=== PATIENT | female | born 1985 | race Caucasian/White ===

== ENCOUNTER 2024-03-21 13:00 | Outpatient (REF) | payer BC, SELFPAY ==
--- OUTSIDE RECORDS SUMMARY | 2024-04-07 12:10 | XMS_ITS | CCD ---
Author Organization [facility] Care Team Providers Care Geographical Historian Name Role Phone MAREN OLIVEROS Primary Care Unavailable DENNIS HUNTLEY Attending Unavailable DENNIS HUNTLEY Attending Unavailable DENNIS HUNTLEY Referring Unavailable MAREN OLIVEROS Primary Care Unavailable Maren Oliveros MD Primary Care Provider MAREN OLIVEROS Attending Unavailable MAREN OLIVEROS Referring Unavailable MAREN OLIVEROS Primary Care Unavailable EMY ARIAS Attending Unavailable EMY ARIAS Referring Unavailable CORNELIO GROVES Attending Unavailable EMY ARIAS Referring Unavailable CORNELIO GROVES Attending Unavailable Problems Active Problems Problem Classification Problem Date Documented Da te Episodic/Chronic Other non-traumatic joint disorders (1 source) Ankle pain Onset: 09-29-2023 Episodic Other nutritional; endocrine; and metabolic disorders (1 source) Other obesity due to excess calories; Translations: [Other obesity due to excess calories] Onset: 02-03-2024 Chronic Other nutritional; endocrine; and metabolic disorders (1 source) Body mass index (BMI) 32.0-32.9, adult; Translations: [Body mass index (BMI) 32.0-32.9, adult] Onset: 02-03-2024 Chronic Sprains and strains (1 source) Sprain of unspecified ligament of right ankle, initial encounter; Translations: [Sprain of unspecified ligament of right ankle, initial encounter] Onset: 09-29-2023 Episodic Unclassified (1 source) Rigth Ankle Injury Onset: 09-29-2023 Unclassified (1 source) discuss weight loss medication Onset: 02-03-2024 Past or Other Problems Problem Classification Problem Date Documented Da te Episodic/Chronic Mood disorders (1 source) Mood disorders Onset: 02-20-2021 02-20-2021 Results Test Name Value Interpretation Reference Range Facil ity US PELVIS TRANSVAGINALon US PELVIS TRANSVAGINAL FINDINGS: Uterus 10.3 x 5.9 x 6.6cm Endometrium 4mm Right Ovary 2.6 x 2.3 x 2.5 cm Left Ovary 2.5 x 1.5 x 2.1 cm The uterus is normal in size and orientation. No worrisome mass lesions are seen. Endometrium appears unremarkable. No fluid is seen within the cul-de-sac. Both ovaries appear normal for this age. IMPRESSION: Normal pelvic ultrasound appearance. TRANSCRIBED BY: ELECTRONICALLY SIGNED BY: Isac Wise MD Normal Not Available XR ANKLE RT MIN 3 VWSon 09-17 XR ANKLE RT MIN 3 VWS XR ANKLE RT MIN 3 VWS XR ANKLE RT MIN 3 VWS INDICATION: Ankle pain COMPARISON: None FINDINGS: No acute fracture or dislocation. Soft tissue prominence surrounds the ankle. No radiopaque foreign bodies. IMPRESSION: Soft tissue prominence surrounds the ankle without underlying osseous abnormality. 32 Finalized by Miles Murillo on 09/29/2023 4:32 PM Normal [facility] Encounters Encounter Date Encounter Type Care Provider Facility Start: 03-21-2024 End: 03-21-2024 ambulatory CORNELIO GERMAIN Not Available Start: 02-03-2024 End: 02-03-2024 ambulatory [facility] Start: 01-25-2024 End: 01-25-2024 ambulatory CORNELIO GERMAIN Not Available Start: 12-14-2023 End: 12-14-2023 ambulatory EMY L FLORO Not Available Start: 12-08-2023 End: 12-08-2023 ambulatory EMY L FLORO Not Available Start: 09-29-2023 End: 09-30-2023 Emergency department patient visit DENNIS HUNTLEY [facility] Start: 03-18-2023 Telephone encounter Maggy JOLLEY [facility] Physicians General Surgery Procedures Date Procedure Procedure Detail Performing Clinician Start: 02-20-2021 Adult depression scr eening assessment Maggy JOLLEY Plan of Treatment Date Care Activity Detail Author Start: 07-14-2031 DTaP,Tdap and Td Vaccines (6 - Td or Tdap) DTaP,Tdap and Td Vaccines (6 - Td or Tdap) [facility] Start: 09-29-2024 Adult BMI Screening Adult BMI Screen ing [facility] Start: 09-29-2024 Tobacco Screening Tobacco Screening [facility] Start: 04-17-2024 Influenza vaccination Influenza Vacc ine [facility] Start: 04-17-2023 COVID-19 Vaccine ( season) COVID-19 Vaccine ( season) [facility] Start: 02-20-2022 Depression Screening Depression Scre ening [facility] Start: 2006 Screening for malign ant neoplasm of cervix Pap Smear [facility] Start: 2003 Adult BMI Follow Up Plan Adult BMI Follow Up Plan [facility] Immunizations Immunization Date Immunization Notes Care Provider Fa cility 07-14-2021 tetanus toxoid, reduced diphtheria toxoid, and acellular pertussis vaccine, adsorbed Maggy Waite [facility] 10-09-2014 tetanus toxoid, reduced diphtheria toxoid, and acellular pertussis vaccine, adsorbed Maggy Waite [facility] 07-16-2014 influenza, injectabl e, quadrivalent, contains preservative Maggy Waite [facility] 07-16-2014 influenza virus vaccine, unspecified formulation Maggy Waite [facility] 06-08-2009 influenza virus vaccine, whole virus Maggy Waite [facility] 09-04-1999 hepatitis B vaccine, pediatric or pediatric/adolescent dosage Maggy Waite [facility] 01-05-1998 hepatitis B vaccine, pediatric or pediatric/adolescent dosage Maggy Waite [facility] 01-05-1998 TD(adult) unspecifie d formulation Maggy Waite [facility] 09-14-1997 hepatitis B vaccine, pediatric or pediatric/adolescent dosage Maggy Waite [facility] 09-14-1997 measles, mumps and rubella virus vaccine Maggy Waite [facility] 04-13-1990 TD(adult) unspecifie d formulation Maggy Waite [facility] 04-13-1990 trivalent poliovirus vaccine, live, oral Maggy Waite [facility] 03-30-1990 measles, mumps and rubella virus vaccine Maggydanita Waite [facility] 04-24-1986 diphtheria, tetanus toxoids and pertussis vaccine Maggydanita Waite [facility] 01-13-1986 diphtheria, tetanus toxoids and pertussis vaccine Joanna Mariann [facility] 01-13-1986 trivalent poliovirus vaccine, live, oral Maggydanita Waite A [facility] 1985 trivalent poliovirus vaccine, live, oral Maggy Mariann [facility] Payers Date Payer Category Payer Unknown [employer] OUT OF STATE PPO/TRUST [id number] 2021-[facility] [phone] [address] [place] [address] [id number] 2021 Unknown [id number] 1985 Unknown [id number] 1985 Unknown [id number] 1985 Unknown [id number] 1985 Unknown [id number] 1985 Unknown [id number] 1985 Unknown [id number] 1985 Unknown [id number] Social History Date Type Detail Facility Start: 02-12-2023 Tobacco smoking stat [facility] Never smoked tobacco [facility] Start: 02-12-2023 Tobacco use and exposure Smokeless tobacco non-user [facility] Start: 03-04-2023 Alcohol intake Current drinke r of alcohol (finding) [facility] Start: 07-24-2023 End: 09-29-2023 History of Social function [facility] Start: 07-24-2023 End: 09-29-2023 Tobacco use panel [facility] Adolescent depressio n screening assessment 0 [facility] Start: 05-18-2017 Alcohol Comment SOCIAL [facility] Start: 1985 Sex Assigned At Not on file P [facility] Medical Equipment Procedure Code Equipment Code Equipment Origin al Text Equipment Identifier Dates Mesh 3.3x2.3mm P lstr Clgn Symbotex 9cm Comp Mfl Babsr [facility] - Sna - [id number] Start: 07-14-2023 Note 03-18-2023 Telephone Encounter - SAMREEN Espinoza - 03/18/2023 11:20 AM EDT Note Date & Type Note Facility 03-18-2023 Miscellaneous Notes Formattin g of this note might be different from the original. I called Deana back to reschedule her Davinci umbilical hernia repair with Dr. Wells. She stated she is going on vacation. She requested something in June 2023. I told the patient that she would need an appt. for a current H & P. The patient verbalized an understanding. The surgery was scheduled for 06/23/23. All appts. were scheduled as well. documented in this encounter [facility] Telephone encounter Note 03-18-2023 Telephone Encounter - SAMREEN Espinoza - 03/18/2023 11:20 AM EDT Note Date & Type Note Facility 03-18-2023 Telephone encount er Note I called Deana back to reschedule her Davinci umbilical hernia repair with Dr. Wells. She stated she is going on vacation. She requested something in June 2023. I told the patient that she would need an appt. for a current H & P. The patient verbalized an understanding. The surgery was scheduled for 06/23/23. All appts. were scheduled as well. [facility] Instructions Note Date & Type Note Facility Instructions Not on filedocumented in this en counter [facility] Summary Purpose Family History No Family History Records FoundNo Family History Records FoundNo Family History Records Found Advance Directives No Advanced Directives Records FoundNo Advanced Directives Records FoundNo Advanced Directives Records Found Additional Source Comments INFORMATION SOURCE (unrecogn ized section and content) DATE CREATED AUTHOR 10/01/2023 [facility] DATE CREATED AUTHOR AUTHOR'S ORGANIZ ATION 02/05/2024 [facility] DATE CREATED AUTHOR AUTHOR'S ORGANIZ ATION 03/22/2024 [facility] Care Teams (unrecognized sec tion and content) Geographical Historian Relationship Specialty Start Date End Date Maren Oliveros MD [address] [place] [address], [address] [place] [address] PCP - General Pediatrics 05/11/17 FOR RECORDS PERTAINING TO PATIENTS WHO ARE OR HAVE BEEN ENROLLED IN A CHEMICAL DEPENDENCY/SUBSTANCEABUSE PROGRAM, SOME INFORMATION MAY BE OMITTED. This clinical summary was aggregated from multiple sources. Caution should be exercised in using it in the provision of clinical care. This summary normalizes information from multiple sources, and as a consequence, information in this document may materially change the coding, format and clinical context of patient data. In addition, data may be omitted in some cases. CLINICAL DECISIONS SHOULD BE BASED ON THE PRIMARY CLINICAL RECORDS. [employer] provides no warranty or guarantee of the accuracy or completeness of information in this document.
--- OUTSIDE RECORDS SUMMARY | 2024-04-07 12:12 | XMS_ITS | CCD ---
Author Organization [facility] Care Team Providers Care Cement Finisher Helper Name Role Phone MAREN OLIVEROS Primary Care [...] Miles Murillo on 09/29/2023 4:32 PM Normal [facility] Encounters Encounter Date Encounter Type Care Provider Facility Start: 03-21-2024 End: 03-21-2024 ambulatory CORNELIO GERMAIN Not Available Start: 02-03-2024 End: 02-03-2024 ambulatory [facility] Start: 01-25-2024 End: 01-25-2024 ambulatory CORNELIO GERMAIN Not Available Start: 12-14-2023 End: 12-14-2023 ambulatory EMY L FLORO Not Available Start: 12-08-2023 End: 12-08-2023 ambulatory EMY L FLORO Not Available Start: 09-29-2023 End: 09-30-2023 Emergency department patient visit DENNIS HUNTLEY [facility] Start: 03-18-2023 Telephone encounter Maggy JOLLEY [facility] Physicians General Surgery Procedures Date Procedure Procedure Detail Performing Clinician Start: 02-20-2021 Adult depression scr eening assessment Maggy JOLLEY Plan of Treatment Date Care Activity Detail Author Start: 07-14-2031 DTaP,Tdap and Td Vaccines (6 - Td or Tdap) DTaP,Tdap and Td Vaccines (6 - Td or Tdap) [facility] Start: 09-29-2024 Adult BMI Screening Adult BMI Screen ing [facility] Start: 09-29-2024 Tobacco Screening Tobacco Screening [facility] Start: 04-17-2024 Influenza vaccination Influenza Vacc ine [facility] Start: 04-17-2023 COVID-19 Vaccine ( season) COVID-19 Vaccine ( season) [facility] Start: 02-20-2022 Depression Screening Depression Scre ening [facility] Start: 2006 Screening for malign ant neoplasm of cervix Pap Smear [facility] Start: 2003 Adult BMI Follow Up Plan Adult BMI Follow Up Plan [facility] Immunizations Immunization Date Immunization Notes Care Provider Fa cility 07-14-2021 tetanus toxoid, reduced diphtheria toxoid, and acellular pertussis vaccine, adsorbed Maggy Waite [facility] 10-09-2014 tetanus toxoid, reduced diphtheria toxoid, and acellular pertussis vaccine, adsorbed Maggy Waite [facility] 07-16-2014 influenza, injectabl e, quadrivalent, contains preservative Maggy Waite [facility] 07-16-2014 influenza virus vaccine, unspecified formulation Maggy Waite [facility] 06-08-2009 influenza virus vaccine, whole virus Maggy Waite [facility] 09-04-1999 hepatitis B vaccine, pediatric or pediatric/adolescent dosage Maggy Waite [facility] 01-05-1998 hepatitis B vaccine, pediatric or pediatric/adolescent dosage Maggy Waite [facility] 01-05-1998 TD(adult) unspecifie d formulation Maggy Waite [facility] 09-14-1997 hepatitis B vaccine, pediatric or pediatric/adolescent dosage Maggy Waite [facility] 09-14-1997 measles, mumps and rubella virus vaccine Maggy Waite [facility] 04-13-1990 TD(adult) unspecifie d formulation Maggy Waite [facility] 04-13-1990 trivalent poliovirus vaccine, live, oral Maggy Waite [facility] 03-30-1990 measles, mumps and rubella virus vaccine Maggydanita Waite [facility] 04-24-1986 diphtheria, tetanus toxoids and pertussis vaccine Maggydanita Waite [facility] 01-13-1986 diphtheria, tetanus toxoids and pertussis vaccine [place] Mariann [facility] 01-13-1986 trivalent poliovirus vaccine, live, oral Maggydanita Waite A [facility] 1985 trivalent poliovirus vaccine, live, oral Maggy Mariann [facility] Payers Date Payer Category Payer Unknown [employer] OUT OF STATE PPO/TRUST [id number] 2021-[employer] [phone] [address] [place] [address] [id number] 2021 Unknown [id number] 1985 Unknown [id number] 1985 Unknown [id number] 1985 Unknown [id number] 1985 Unknown [id number] 1985 Unknown [id number] 1985 Unknown [id number] 1985 Unknown [id number] Social History Date Type Detail Facility Start: 02-12-2023 Tobacco smoking stat [facility] Never smoked tobacco [facility] Start: 02-12-2023 Tobacco use and exposure Smokeless tobacco non-user [facility] Start: 03-04-2023 Alcohol intake Current drinke r of alcohol (finding) [facility] Start: 07-24-2023 End: 09-29-2023 History of Social function [facility] Start: 07-24-2023 End: 09-29-2023 Tobacco use panel [facility] Adolescent depressio n screening assessment [address] [facility] Start: 05-18-2017 Alcohol Comment SOCIAL [facility] Start: 1985 Sex Assigned At Not on file P [facility] Medical Equipment Procedure Code Equipment Code Equipment Origin al Text Equipment Identifier Dates Mesh 3.3x2.3mm P lstr Clgn Symbotex 9cm Comp Mfl Babsr [facility] - Sna - [id number] Start: 07-14-2023 Note 03-18-2023 Telephone Encounter [...] scheduled as well. documented in this encounter [facility] Telephone encounter Note 03-18-2023 Telephone Encounter [...] 06/23/23. All appts. were scheduled as well. [facility] Instructions Note Date & Type Note Facility Instructions Not on filedocumented in this en counter [employer] Summary Purpose Family History No Family History Records FoundNo Family History Records FoundNo Family History Records Found Advance Directives No Advanced Directives Records FoundNo Advanced Directives Records FoundNo Advanced Directives Records Found Additional Source Comments INFORMATION SOURCE (unrecogn ized section and content) DATE CREATED AUTHOR 10/01/2023 [facility] DATE CREATED AUTHOR AUTHOR'S ORGANIZ ATION 02/05/2024 [facility] DATE CREATED AUTHOR AUTHOR'S ORGANIZ ATION 03/22/2024 [facility] Specialists [facility] Care Teams (unrecognized sec tion and content) Cement Finisher Helper Relationship Specialty Start Date End Date Maren Oliveros MD [address] [place] [address], [address] [place] [address] PCP - General Pediatrics 05/11/17 FOR RECORDS [...] BE BASED ON THE PRIMARY CLINICAL RECORDS. [employer] provides no warranty or guarantee of the accuracy or completeness of information in this document.
== END 2024-03-21 13:01 | disposition home or self-care (01) ==
LOC: LAB 13:00
PROVIDERS: Family Provider Internal Medicine; Visit Provider Obstetrics & Gynecology
DX: N92.0 Excessive and frequent menstruation with regular cycle (principal)
CPT/HCPCS: 88305

== ENCOUNTER 2024-03-28 14:32 | Outpatient (OUT) | payer BC, SELFPAY | END 2024-03-28 14:33 | disposition home or self-care (01) | PROVIDERS: Family Provider Internal Medicine; Visit Provider Obstetrics & Gynecology | DX: Z01.818 Encounter for other preprocedural examination (principal); N92.0 Excessive and frequent menstruation with regular cycle; N93.9 Abnormal uterine and vaginal bleeding, unspecified; R10.2 Pelvic and perineal pain ==

== ENCOUNTER 2024-04-08 06:07 | Day surgery (SDC) | payer BC, SELFPAY ==
[2024-03-28 14:52] VITALS: BP 143/96; PULSE 68; TEMP 36.4; O2SAT 100; BMI 34.1
--- OUTSIDE RECORDS SUMMARY | 2024-04-08 06:10 | XMS_ITS | CCD ---
Author Organization [facility] Care Team Providers Care Credit Reference Clerk Name Role Phone MAREN OLIVEROS Primary Care [...] Miles Murillo on 09/29/2023 4:32 PM Normal [facility] Encounters Encounter Date Encounter Type Care Provider Facility Start: 03-21-2024 End: 03-21-2024 ambulatory CORNEILO GERMAIN Not Available Start: 02-03-2024 End: 02-03-2024 ambulatory [facility] Start: 01-25-2024 End: 01-25-2024 ambulatory CORNELIO GERMAIN Not Available Start: 12-14-2023 End: 12-14-2023 ambulatory EMY L FLORO Not Available Start: 12-08-2023 End: 12-08-2023 ambulatory EMY L FLORO Not Available Start: 09-29-2023 End: 09-30-2023 Emergency department patient visit DENNIS HUNTLEY [facility] Start: 03-18-2023 Telephone encounter Maggy JOLLEY [facility] General Surgery Procedures Date Procedure Procedure Detail Performing Clinician Start: 02-20-2021 Adult depression scr eening assessment Maggy JOLLEY Plan of Treatment Date Care Activity Detail Author Start: 07-14-2031 DTaP,Tdap and Td Vaccines (6 - Td or Tdap) DTaP,Tdap and Td Vaccines (6 - Td or Tdap) [facility] Start: 09-29-2024 Adult BMI Screening Adult BMI Screen ing [facility] Start: 09-29-2024 Tobacco Screening Tobacco Screening [facility] Start: 04-17-2024 Influenza vaccination Influenza Vacc ine [facility] Start: 04-17-2023 COVID-19 Vaccine ( season) COVID-19 Vaccine ( season) [facility] Start: 02-20-2022 Depression Screening Depression Scre ening [facility] Start: 2006 Screening for malign ant neoplasm of cervix Pap Smear [facility] Start: 2003 Adult BMI Follow Up Plan Adult BMI Follow Up Plan [facility] Immunizations Immunization Date Immunization Notes Care Provider Fa cility 07-14-2021 tetanus toxoid, reduced diphtheria toxoid, and acellular pertussis vaccine, adsorbed Maggy Waite [facility] 10-09-2014 tetanus toxoid, reduced diphtheria toxoid, and acellular pertussis vaccine, adsorbed Maggy Waite [facility] 07-16-2014 influenza, injectabl e, quadrivalent, contains preservative Maggy Waite [facility] 07-16-2014 influenza virus vaccine, unspecified formulation Maggy Waite [facility] 06-08-2009 influenza virus vaccine, whole virus Maggy Waite [facility] 09-04-1999 hepatitis B vaccine, pediatric or pediatric/adolescent dosage Maggy Waite [facility] 01-05-1998 hepatitis B vaccine, pediatric or pediatric/adolescent dosage Maggy Waite [facility] 01-05-1998 TD(adult) unspecifie d formulation Maggy Waite [facility] 09-14-1997 hepatitis B vaccine, pediatric or pediatric/adolescent dosage Maggy Waite [facility] 09-14-1997 measles, mumps and rubella virus vaccine Maggy Waite [facility] 04-13-1990 TD(adult) unspecifie d formulation Maggy Waite [facility] 04-13-1990 trivalent poliovirus vaccine, live, oral Maggy Waite [facility] 03-30-1990 measles, mumps and rubella virus vaccine Maggydanita Waite [facility] 04-24-1986 diphtheria, tetanus toxoids and pertussis vaccine Maggydanita Waite [facility] 01-13-1986 diphtheria, tetanus toxoids and pertussis vaccine Roscoe Mariann [facility] 01-13-1986 trivalent poliovirus vaccine, live, oral Maggydanita Waite A [facility] 1985 trivalent poliovirus vaccine, live, oral Maggy Mariann [facility] Payers Date Payer Category Payer Unknown [employer] OUT OF STATE PPO/TRUST [id number] 2021-[facility] [phone] [address] [place] [address] [id number] 2021 Unknown [id number] 1985 Unknown [id number] 1985 Unknown [id number] 1985 Unknown [id number] 1985 Unknown [id number] 1985 Unknown [id number] 1985 Unknown [id number] 1985 Unknown [id number] Social History Date Type Detail Facility Start: 02-12-2023 Tobacco smoking stat [facility] Never smoked tobacco [facility] Start: 02-12-2023 Tobacco use and exposure Smokeless tobacco non-user [facility] Start: 03-04-2023 Alcohol intake Current drinke r of alcohol (finding) [facility] Start: 07-24-2023 End: 09-29-2023 History of Social function [facility] Start: 07-24-2023 End: 09-29-2023 Tobacco use panel [facility] Adolescent depressio n screening assessment 0 [facility] Start: 05-18-2017 Alcohol Comment SOCIAL [facility] Start: 1985 Sex Assigned At Not on file P [facility] Medical Equipment Procedure Code Equipment Code Equipment Origin al Text Equipment Identifier Dates Mesh 3.3x2.3mm P lstr Clgn Symbotex 9cm Comp Mfl Babsr [facility] - [id number] Start: 07-14-2023 Note 03-18-2023 Telephone Encounter [...] scheduled as well. documented in this encounter [facility] Telephone encounter Note 03-18-2023 Telephone Encounter - [...] 06/23/23. All appts. were scheduled as well. [employer] Instructions Note Date & Type Note Facility Instructions Not on filedocumented in this en counter [employer] Summary Purpose Family History No Family History Records FoundNo Family History Records FoundNo Family History Records Found Advance Directives No Advanced Directives Records FoundNo Advanced Directives Records FoundNo Advanced Directives Records Found Additional Source Comments INFORMATION SOURCE (unrecogn ized section and content) DATE CREATED AUTHOR 10/01/2023 [facility] DATE CREATED AUTHOR AUTHOR'S ORGANIZ ATION 02/05/2024 [facility] DATE CREATED AUTHOR AUTHOR'S ORGANIZ ATION 03/22/2024 [facility] Care Teams (unrecognized sec tion and content) Credit Reference Clerk Relationship Specialty Start Date End Date Maren Oliveros MD [address] [place] [address], [address] [place] [address] PCP - General Pediatrics 05/11/17 FOR RECORDS [...] BE BASED ON THE PRIMARY CLINICAL RECORDS. [employer] provides no warranty or guarantee of the accuracy or completeness of information in this document.
[2024-04-08 06:17] VITALS: BP 167/100; PULSE 86; TEMP 36.4; O2SAT 98; BMI 35.0
[2024-04-08 06:48] LABS: HCG Quantitative <1 mIU/mL
[2024-04-08] MEDS: LACTATED RINGER'S SOLUTION 1,000 ML 50 ML IV (06:56)
[2024-04-08 07:00] LABS: Basophils Absolute Auto 0.1 10^3/uL (0.0-0.1); Basophils Percent Auto 1.1 % (0.2-2.0); Eosinophils Absolute Auto 0.6 10^3/uL (0.0-0.7); Eosinophils Percent Auto 7.5 % (0.9-7.0); Hematocrit 34.5 % (36.0-48.0); Hemoglobin 10.2 g/dL (12.0-16.0); Immature Granulocytes Abs Auto 0.02 10^3/uL (0.00-0.03); Immature Granulocytes Pct Auto 0.2 % (0.0-0.5); Lymphocytes Absolute Auto 2.2 10^3/uL (1.2-3.8); Lymphocytes Percent Auto 26.5 % (20.5-60.0); Mean Corpuscular HGB Conc 29.6 g/dL (29.9-35.2); Mean Corpuscular Hemoglobin 23.2 pg (26.7-34.0); Mean Corpuscular Volume 78.6 fL (81.0-99.0); Mean Platelet Volume 10.8 fL (9.5-13.5); Monocytes Absolute Auto 0.8 10^3/uL (0.3-0.8); Monocytes Percent Auto 9.7 % (1.7-12.0); Neutrophils Absolute Auto 4.5 10^3/uL (1.4-6.5); Platelet Count 332 10^3/uL (150-450); Red Blood Count 4.39 10^6/uL (4.20-5.40); Red Cell Distribution Width 15.7 % (11.0-15.0); White Blood Count 8.2 10^3/uL (4.0-11.0)
[2024-04-08 08:08] VITALS: BP 115/61; PULSE 86; TEMP 36.8; O2SAT 95
[2024-04-08 08:23] VITALS: BP 107/77; PULSE 89; O2SAT 100
--- NOTE | 2024-04-08 08:28 | PM.ONB ---
Brief Operative Note Date of procedure: 04/08/24 Pre-op diagnosis general: menorrhagia Post-op diagnosis: same as pre-op Procedure: NAME OF PROCEDURE: [ ] Tami endometrial ablation with hysteroscopy. PROCEDURE: The patient was taken back to the OR where she was prepped and draped in the normal sterile fashion after being placed in the dorsal lithotomy position, after being placed under general anesthesia without difficulty.? A weighted speculum was placed into the vagina. The anterior lip was grasped with a single tooth tenaculum. The patient was then sounded to approximated 8cm. The patient?s cervix was gently dilated using hegardilators. The hysteroscope was passed through the cervix into the uterus where both ostia were seen. No gross evidence of polyps, fibroids or malignancy. The cervical length was noted to be 4 cm. The total cavity length is 4cm.? The Tami ablation apparatus was set to approximately 4cm in length. This was placed through the cervix and into the uterus. After the seal was tested, at that time the total ablation of 120 seconds was performed with the Tami withoutdifficulty. All instruments were removed from the vagina. Excellent hemostasis noted.? Sponge and lap count correct times 2.? Patient taken to recovery in stable condition. Anesthesia: MAC Surgeon: Luis Olvera Estimated blood loss (mL): 5 Pathology: none sent Condition: stable Disposition: PACU Urinary Catheter Management Urinary Catheter Management Straight: Cath placed during this visit: no
[2024-04-08 08:39] VITALS: BP 132/92; PULSE 77; O2SAT 99
[2024-04-08 09:08] VITALS: BP 138/94; PULSE 74; O2SAT 99
[2024-04-08] MEDS: LACTATED RINGER'S SOLUTION 1,000 ML 150 ML IV (09:17)
--- NOTE | 2024-04-08 09:18 | PC.NURSE ---
0910: pt voices need to void,physician underwriter and Anna,RN assist pt to bedside commode, pt very drowsy,unable to keep eyes open. pt assisted back into bed,pt unable to void at this time.
[2024-04-08 09:38] VITALS: BP 132/96; PULSE 74; O2SAT 99
--- NOTE | 2024-04-08 10:02 | PC.NURSE ---
0945: pt ambulates to bathroom with minimal assistance,pt voids without difficulty.
== END 2024-04-08 09:52 | disposition home or self-care (01) ==
PROVIDERS: Family Provider Internal Medicine; PCP Internal Medicine; Visit Provider Obstetrics & Gynecology
PROC: (CPT 952; principal; 2024-04-08 07:30)
DX: N92.0 Excessive and frequent menstruation with regular cycle (principal); N93.9 Abnormal uterine and vaginal bleeding, unspecified; R10.2 Pelvic and perineal pain
CPT/HCPCS: 58563; 36415; 84702; 85025; J1100; J1885; J2250; J2704; J3010

== ENCOUNTER 2025-07-14 10:02 | Outpatient (OUT) | payer BC, SELFPAY ==
--- OUTSIDE RECORDS SUMMARY | 2025-07-04 08:40 | XMS_ITS | Encounter Summary ---
Author Organization [facility] Address [address] [place] [address] Care Team Providers Care Melon Packer Name Role Phone Miguel Oliveros MD Primary Care Provider [phone] Reason for Visit * ReasonCommentsPre-op Visit Encounter Details DateTypeDepartmentCare Team (Latest Contact Info)Jyilwzyppqz66/18/2025 8:40 AM ESTConsult [facility] [place] [facility] [address] [id number] Luis Olvera DO [address] [place] [address] Menorrhagia with regular cycle; Pelvic pain; Dysmenorrhea; Dyspareunia in female; Pre-op examination Social History Tobacco UseTypesPacks/DayYears UsedDateSmoking Tobacco: NeverSmokeless Tobacco: Never Tobacco Cessation:Counseling Given: Not Answered Alcohol UseStandard Drinks/WeekCommentsYes1 (1 standard drink = 0.6 oz pure alcohol)CommentsNoSex and Gender InformationValueDate RecordedSex Assigned at BirthNot on fileLegal ZwbFksrxv10/15/2023 7:23 PM EDTGender Identity Not on fileSexual OrientationNot on filedocumented as of this encounter Last Filed Vital Signs Vital SignReadingTime TakenCommentsBlood Ufdscdty154/7807/04/2025 9:07 AM EST Pulse--Temperature--Respiratory Rate--Oxygen Saturation--Inhaled Oxygen Concentration--Awxjpx54.8 kg (165 lb)07/04/2025 9:07 AM NGYHvntah050.6 cm (5' 6 )07/04/2025 9:07 AM ESTBody Mass Index26.6311 9:07 AM ESTdocumented in this encounter Progress Notes * Blossom ChristianRIMMA - 07/04/2025 8:40 AM EST Reason for Appointment: Patient ID: Humble Martinez is a 39 y.o. female who presents for Pre-op Visit Patient presents today for Pre Op appointment. Patient is scheduled to undergo Total Abdominal Hysterectomy, possible BSO, possible cystoscopy on 08/02/[address] Olvera at [facility]. MEDICATIONS Current Outpatient Medications Medication Instructions acetaminophen (TYLENOL) 1,000 mg, Oral, Every 6 hours PRN ferrous sulfate 325 mg, Oral, Daily with breakfast ibuprofen 800 mg, Oral, 3 times daily ALLERGIES No Known Allergies PROBLEMS Active Ambulatory Problems Diagnosis Date Noted No Active Ambulatory Problems Resolved Ambulatory Problems Diagnosis Date Noted No Resolved Ambulatory Problems No Additional Past Medical History HISTORY PAST MEDICAL HISTORY SOCIAL HISTORY No past medical history on file. Social History Tobacco Use Smoking status: Never Smokeless tobacco: Never Substance Use Topics Alcohol use: Yes Alcohol/week: 1.0 standard drink of alcohol Types: 1 Glasses of wine per week Drug use: Never FAMILY HISTORY No family history on file. SURGICAL HISTORY Past Surgical History: Procedure Laterality Date SECTION, LOW TRANSVERSE x2 2010 2014 ENDOMETRIAL ABLATION HERNIA REPAIR REVIEW OF SYSTEMS Review of Systems: Review of Systems Constitutional: Negative. HENT: Negative. Eyes: Negative. Respiratory: Negative. Cardiovascular: Negative. Gastrointestinal: Negative. Genitourinary: Positive for dyspareunia, menstrual problem, pelvic pain and vaginal bleeding. Musculoskeletal: Negative. Skin: Negative. Neurological: Negative. All other systems reviewed and are negative. Hematological: Negative. Endocrine: Negative. Allergic/Immunologic: Negative. OBJECTIVE Objective: Physical Exam Constitutional: Appearance: Normal appearance. She is well-developed. Cardiovascular: Rate and Rhythm: Normal rate and regular rhythm. Pulmonary: Effort: Pulmonary effort is normal. Breath sounds: Normal breath sounds. Abdominal: General: Bowel sounds are normal. There is no distension. Palpations: Abdomen is soft. Tenderness: There is no abdominal tenderness. There is no guarding or rebound. Musculoskeletal: General: No swelling. Normal range of motion. Right lower leg: No edema. Left lower leg: No edema. Neurological: Mental Status: She is alert and oriented to person, place, and time. Skin: General: Skin is warm and dry. Psychiatric: Mood and Affect: Mood normal. Behavior: Behavior normal. Vitals and nursing note reviewed. Exam conducted with a power hair clipper present. Vitals: Estimated body mass index is 26.63 kg/m?? as calculated from the following: Height as of 01/25/24: 5' 6 . Weight as of this encounter: 165 lb. BP: 128/78 Patient's last menstrual period was 05/20/2025 (exact date). Assessment/Plan ICD-10-CM 1. Menorrhagia with regular cycle N92.0 2. Pelvic pain R10.20 3. Dysmenorrhea N94.6 4. Dyspareunia in female N94.10 5. Pre-op examination Z01.818 Assessment/Plan Pre Op: Patient is doing well but has complaints of Menorrhagia, Pelvic pain, Dysmenorrhea and Dyspareunia.I have discussed conservative management vs. surgical management with the patient in detail and patient desires surgical management at this time. Patient will undergo Total Abdominal Hysterectomy, pos sible BSO, possible cystoscopy on 08/02/2025. Surgical consents were signed, mmc was reviewed, and patient is to proceed to [facility] OR. Patient is scheduled for 07/19/25 @ 9:00 am. Follow Up: Patient is to follow up at 1 & 6 weeks post operative to assess proper healing and recovery from procedure. Documented by Svetlana Painting LPN on behalf of: Luis Olvera DO documented in this encounter Plan of Treatment DateTypeDepartmentCare Team (Latest Contact Info)Byoxxnlofgf38/23/2025 9:30 AM ESTOffice Visit [facility] [address] [address] Darlyn Atkins PA [address] [place] [address] documented as of this encounter Visit Diagnoses Diagnosis Menorrhagia with regular cycle Pelvic pain Dysmenorrhea Dyspareunia in female Pre-op examination documented in this encounter Care Teams Team MemberRelationshipSpecialtyStart DateEnd Date Miguel Oliveros MD [address] [place] [address], [address] [place] [address] PCP - GeneralFamily Medicine03/21/24documented as of this encounter
--- OUTSIDE RECORDS SUMMARY | 2025-07-14 10:04 | XMS_ITS | CCD ---
Author Organization [facility] Care Team Providers Care Char House Supervisor Name Role Phone MAREN OLIVEROS Attending Unavailable MAREN OLIVEROS Referring Unavailable MAREN OLIVEROS Primary Care Unavailable Maren Oliveros MD Primary Care Provider [phone] MAREN OLIVEROS Primary Care Unavailable Maren Oliveros MD Primary Care Provider EMY MCMAHON Attending Unavailable CORNELIO OLVERA Attending Unavailable Medications Current Medications MedicationDrug Class(es)DatesSig (Normalized)Sig (Original)acetaminophen 500 mg oral tablet (5 sources)Start: 04-63-3068jueh 2 tablets by mouth every six hours as needed acetaminophen (Tylenol) 500 MG tablet Take 1,000 mg by mouth every 6 (six) hours if needed 09/29/2023 Activeferrous sulfate 325 mg oral tablet (5 sources)take 1 tablet by mouth at mealtimeferrous sulfate 325 (65 Fe) MG tablet Take 325 mg by mouth in the morning. Take with meals. Activeibuprofen 800 mg oral tablet (5 sources)Nonsteroidal Anti-inflammatory DrugStart: 03-75-3331pixqqoixj 800 MG tablet Take 800 mg by mouth in the morning and 800 mg at noon and 800 mg in the evening. 09/29/2023 ActiveSemaglutide-Weight Management 0.5 MG/0.5ML solution auto-injector (5 sources)Start: 42-75-6511ypakgi 0.25 mg by subcutaneous injection every week Semaglutide-Weight Management 0.5 MG/0.5ML solution auto-injector Inject 0.25 mg under the skin once a week 02/03/2024 Active Problems Problem ClassificationProblemDateDocumented DateEpisodic/Chronic Administrative/social admission (2 sources)Patient encounter status; Translations: [Other specified counseling] 84-98-2322YlhgaiwuOqtwhjxfn disorders (2 sources)Menometrorrhagia; Translations: [Excessive and frequent menstruation with irregular cycle]11-75-4993TwkmxeqMehrx lower respiratory disease (2 sources)CoughOnset: 25-54-7217PvhbntrfYnmpa nutritional; endocrine; and metabolic disorders (1 source)Other obesity due to excess calories; Translations: [Other obesity due to excess calories]Onset: 72-22-4470BehcznhWtufj nutritional; endocrine; and metabolic disorders (1 source)Body mass index (BMI) 32.0-32.9, adult; Translations: [Body mass index (BMI) 32.0-32.9, adult]Onset: 68-62-8190WkrybdtNdlejvvnsmmc (1 source)discuss weight loss medicationOnset: 50-80-1860Kgwnd infection (1 source)Other specified viral diseases; Translations: [Other specified viral diseases]Onset: 57-61-6429Spisgdyh Results Test NameValueInterpretationReference RangeFacilitySARS/FLU A+B/RSV by NAAT/Molecularon 10-62-5634RMYS/FLU A+B/RSV by NAAT/MolecularFLU A PCR Negative (qualifier value) FLU B PCR Negative (qualifier value) RSV by PCR Positive (qualifier value) SARS CoV 2 Not detected (qualifier value) NOTE The Xpert Xpress SARS-CoV-2/Flu/RSV Plus test is a rapid, multiplexed real-time RT-PCR test intended for the simultaneous qualitative detection and differentiation of SARS-CoV-2, influenza A, influenza B and respiratory syncytial virus (RSV) viral RNA from individuals suspected of respiratory viral infection consistent with COVID-19 by their healthcare provider. This test has not been validated in asymptomatic patients. The Xpert Xpress SARS-CoV-2 test is intended for use by qualified and trained operators who are performing tests using either GeneCARGOBR DX or GeneLean Train systems and is limited to laboratories that meet the CLIA requirements to perform high and moderate complexity tests. The Xpert Xpress SARS-CoV-2/Flu/RSV Plus is only for use under the Food and Drug Administration's Emergency Use Authorization. Results are for the simultaneous detection and differentiation of SARS-CoV-2, influenza A, influenza B and RSV nucleic acids in clinical specimens. SARS-CoV-2, influenza A, influenza B and RSV RNA identified by this test are generally detectable in upper respiratory samples during the acute phase of infection. Positive results are indicative of the presence of the identified virus, but do not rule out bacterial infection or co-infection with other pathogens not detected by this test. Clinical correlation with patient history and other diagnostic information is necessary to determine patient infection status. The agent detected may not be the definite cause of disease. Negative results do not preclude SARS-CoV-2, influenza A, influenza B and RSV infection and should not be used as the sole basis for treatment or other patient management decisions. Negative results must be combined with clinical observations, patient history and epidemiological information. An Invalid result may occur with specimen-associated inhibition unable to be resolved with specimen repeat. Fact Sheet for Healthcare Providers: https://www.fda.gov/media/085112/download Fact Sheet for Patients: https://www.fda.gov/media/011868/downloadNormKeenan Private HospitalComment on above:Performed By: #### COVFLR #### [facility] ([id number]) [address] [place] [address] [id number] CHEST 2 VWSon 49-75-3049NM CHEST 2 VWSXR CHEST 2 VWS PA and lateral chest: HISTORY: Cough. 2 views of the chest are obtained. Cardiac and mediastinal contours are within normal limits. Lungsare clear. There is no vascular congestion, effusion, or pneumothorax. Osseous structures appear intact. IMPRESSION: No acute findings. Finalized by Allen Sevilla MD on 11/15/2024 6:47 PMNormalProTexas Health FriscoTBH PREG QUANT HCGon 62-79-5904RWH QUANTITATIVE<1mIU/mLNResearch Medical Center-[facility] Comment on above:5-50 0.2-1 WEEK 50-500 1-2 WEEKS 100-5,000 2-3 WEEKS 500-10,000 3-4 WEEKS 1,000-50,000 4-5 WEEKS 10,000-100,000 5-6 WEEKS 15,000-200,000 6-8 WEEKS 10,000-100,000 2-3 MONTHS [facility]NC[facility] Vital Signs Date TimeVital SignValuePerforming KsgjpwunuPxxrbngy14-73-1409 11:03-0400Body mass index (BMI) [Ratio]28.87 kg/w4Skkfr May DO Work Phone: [facility] HospitalQuegfphypb10-08-9725 11:03-0400Body dmjlhe17.14 kgCorey May DO Work Phone: [facility] HospitalMalijpsvma15-84-8634 11:03-0400Diastolic blood aihxzqry95 mm[Hg]Cornelio May DO Work Phone: [facility] HospitalKkcxywdgpu61-84-9902 11:03-0400Systolic blood yiiqftqn170 mm[Hg]Cornelio May DO Work Phone: [facility] Encounters Encounter DateEncounter TypeCare ProviderFacilityStart: 06-06-2025 End: 94-18-7071uohupmenzlFTFBHAP L FLORONot AvailableStart: 06-06-2025 End: 99-46-5457Sszzyl flowsheetValerie L Floro CN Work Phone: [facility] [place] OBGYNStart: 06-06-2025 End: 60-43-0213Cnesbi flowsheetValerie L Floro CNM Work Phone: [facility] [place] OBGYNStart: 04-13-2025 End: 86-63-7231Jmdqsf flowsheetCorey May DO Work Phone: [facility] [place] OBGYNStart: 04-13-2025 End: 09-51-9509Dpyhcr flowsheetCorey May DO Work Phone: [facility] [place] OBGYNStart: 04-13-2025 End: 29-95-5580Vfrtnq outpatient visit 15 minutesCorey May DO Work Phone: no[facility] [place] OBGYNComment on above:Encounter to discuss procedure; Menorrhagia with irregular cycleStart: 04-13-2025 End: 32-53-0566plvblzyhdlUTJCS FAZIONot AvailableStart: 11-15-2024 End: 30-68-2803Ksfmegmqj department patient visitJOHN J [facility] HospitalStart: 04-08-2024 End: 84-86-4348Zhdudiwvj Result EncounterCorey May DO Work Phone: NO[facility] External Department UnsolicitedStart: 04-08-2024 End: 24-96-6726Brfeznfvi Result EncounterCorey May DO Work Phone: noms External Department UnsolicitedStart: 02-03-2024 End: 67-60-7306pmbdytgikgUVCU J [facility] Procedures DateProcedureProcedure DetailPerforming ClinicianStart: 58-42-2294BDM PREG QUANT HCGCorey May DO Work Phone: Plan of Treatment DateCare ActivityDetailAuthorStart: 07-04-2025 End: 66-42-1536Wvbuhrk encounter nddrzlytj86/18/2025 8:40 AM EST Consult NOMDeyanira IRIZARRY [address] [place] [address] Cornelio Olvera DO [address], [facility]11 LISETTE [place] OBGYNStart: 06-06-2025 End: 17-30-4491Utaxrav encounter kelqhodms77/21/2025 4:00 PM EDT Office Visit LISETTE IRIZARRY [address] [place] [address] Emy Mcmahon, [facility] [address] [place], [place] [address] ArrivedNOUniversity of [facility] OBGYNComment on above:ArrivedStart: 04-13-2025 End: 26-98-5900Xbswykn encounter rkiymfqeb74/28/2025 10:40 AM EDT Office Visit LISETTE IRIZARRY [address] [place] [address] Cornelio Olvera DO [address] [place] [address] ArrivedNOMS [place] OBGYNComment on above:ArrivedStart: 04-08-2024 End: 81-48-3888Xnukddj encounter mtolsavsx34/23/2024 7:30 AM EDT Procedure Visit [facility] EXT DEP May, Cornelio, DO [address] [place] [address] [facility] Payers DatePayer CategoryPayerPolicy [id number] [place] Blue ShieldBCBS Member Subscriber Plan / Payer (Effective 2021-Present) Name: Humble Martinez Relation to Subscriber: Spouse Name: DAIN MARTINEZ Dateof : 1985 Address: [address] [place] [address] Payer ID: Not on file Type: Not on file Address: [address] [place] [id number] BCBS [id number] 2021-Present [phone] [address] [place] [id number] [id number] .0.1.250000.3.579.2.730214-02-5694Lwqqsmz [id number] .[id number] .0.1.508529.3.57[id number] Social History DateTypeDetailFacilityStart: 31-87-2781Shuvusq smoking status NHISNever smoked tobaccoNOIL HealthcareStart: 86-17-8320Zcdquaf use and exposureSmokeless tobacco non-userNOMS HealthcareStart: 03-21-2024 End: 95-33-2586Ksgortlpf beverage intakeCurrent drinker of alcohol (finding)[facility] HealthcareStart: 03-21-2024 End: 84-62-0631Vvkazilcx beverage intakeNOIL HealthcareStart: 12-08-2023 End: 37-13-5007Lyascey use panelNOIL HealthcareStart: 76-07-5893Phl assigned at birthNot on fileBEAVER VALLEY H[facility]ITAL HealthcareStart: 20-52-8109WauGpqpxhQISQ Healthcare History of Present illness Narrative 04-13-2025 Note Date & ZbykDdloVchuxbud95-50-1692 History of Present illness Narrative* Blossom Christian, ST[facility]UER - 04/13/2025 10:40 AM EDT Reason for Appointment: Patient ID: Humble Martinez is a 39 y.o. female who presents for Initial Gynecologic Consult Patient presents today for Consult appointment. MEDICATIONS Current Outpatient Medications Medication Instructions acetaminophen (TYLENOL) 1,000 mg, Oral, Every 6 hours PRN ferrous sulfate 325 mg, Oral, Daily with breakfast ibuprofen 800 mg, Oral, 3 times daily Semaglutide-Weight Management 0.25 mg, Subcutaneous, Weekly ALLERGIES No Known Allergies PROBLEMS Active Ambulatory Problems Diagnosis Date Noted No Active Ambulatory Problems Resolved Ambulatory Problems Diagnosis Date Noted No Resolved Ambulatory Problems No Additional Past Medical History HISTORY PAST MEDICAL HISTORY SOCIAL HISTORY History reviewed. No pertinent past medical history. Social History Tobacco Use Smoking status: Never Smokeless tobacco: Never Substance Use Topics Alcohol use: Yes Alcohol/week: 1.0 standard drink of alcohol Types: 1 Glasses of wine per week Drug use: Never FAMILY HISTORY No family history on file. SURGICAL HISTORY Past Surgical History: Procedure Laterality Date SECTION, LOW TRANSVERSE x2 2010 2014 HERNIA REPAIR REVIEW OF SYSTEMS Review of Systems: Review of Systems Constitutional: Negative. HENT: Negative. Eyes: Negative. Respiratory: Negative. Cardiovascular: Negative. Gastrointestinal: Negative. Genitourinary: Positive for menstrual problem and vaginal bleeding. Musculoskeletal: Negative. Skin: Negative. [...] nursing note reviewed. Exam conducted with a press feeder broomcorn present. Vitals: Estimated body mass index is 28.87 kg/m as calculated from the following: Height as of 01/25/24: 5' 6 . Weight as of this encounter: 178 lb 13.9 oz. BP: 116/78 No LMP recorded. ASSESSMENT & PLAN ICD-10-CM 1. Encounter to discuss procedure Z71.89 2. Menorrhagia with irregular cycle N92.1 Patient presents to office today to discuss failed endometrial ablation. Since surgical management for heavy menses, patients symptoms have not improved. Patient desires further surgical management with FELICITA. Patient aware that provider will use previous scar for FELICITA. Patient is placed on the books for surgery to be done on 07/26/25. Patient aware that she will receive a call if by chance surgery dates open up prior to July. PVU and is will to have procedure done early if able. Patient to schedule for pre-op prior to leaving office today & will also schedule with Janice Mcmahon for her annual PAP to be obtained prior to surgical procedure. Documented by Blossom Christian LPN on behalf of: Cornelio Olvera DO documented in this encounterNOIL Healthcare Evaluation note Note Date & TypeNoteFacilityEvaluation note* Diagnosis Encounter to discuss procedure Menorrhagia with irregular cycle documented in this encounter [facility] Summary Purpose Family History No Family History Records FoundNo Family History Records FoundNo Family History Records Found Advance Directives No Advanced Directives Records FoundNo Advanced Directives Records FoundNo Advanced Directives Records Found Additional Source Comments INFORMATION SOURCE (unrecogn ized section and content) DATE CREATED AUTHOR 02/05/2024 [facility] DATE CREATED AUTHOR AUTHOR'S ORGANIZ ATION 11/18/2024 [facility] DATE CREATED AUTHOR AUTHOR'S ORGANIZ ATION 06/08/2025 [facility] EPIC Care Teams (unrecognized sec tion and content) Team MemberRelationshipSpecialtyStart DateEnd Date Maren Oliveros MD [address] [place] [address], [address] [place] [address] PCP - GeneralFamily Medicine03/21/24Team MemberRelationshipSpecialtyStart DateEnd Date Maren Oliveros MD PCP - GeneralFamily Medicine03/21/24Team MemberRelationshipSpecialtyStart DateEnd Date Maren Oliveros MD PCP - GeneralFamily Medicine03/21/24Team MemberRelationshipSpecialtyStart DateEnd Date Maren Oliveros MD PCP - GeneralFamily Medicine03/21/24 Reason for Visit (unrecogniz ed section and content) ReasonCommentsInitial Gynecologic Consult FOR RECORDS PERTAINING TO PATIENTS WHO ARE [...] BE BASED ON THE PRIMARY CLINICAL RECORDS. [facility] [employer] [facility]. provides no warranty or guarantee of the accuracy or completeness of information in this document.
--- OUTSIDE RECORDS SUMMARY | 2025-07-14 10:06 | XMS_ITS | Encounter Summary ---
Author Organization [facility] Address [address] [facility] [place] [address] Care Team Providers Care Senior Counsel Commercial Name Role Phone Miguel Oliveros MD Primary Care Provider [phone] Encounter Details DateTypeDepartmentCare Team (Latest Contact Info)Sfcuuacqmjk24/18/2025amboo flowsheet NOMDeyanira IRIZARRY [address] [facility] [place] [address] Luis Olvera DO [address] [facility] [address] [place], [place] [address] Social History Tobacco UseTypesPacks/DayYears UsedDateSmoking Tobacco: NeverSmokeless Tobacco: NeverAlcohol UseStandard Drinks/WeekCommentsYes1 (1 standard drink = 0.6 oz pure alcohol)CommentsNoSex and Gender InformationValueDate RecordedSex Assigned at BirthNot on fileLegal MbwWxemfw93/15/2023 7:23 PM EDTGender Identity Not on fileSexual OrientationNot on filedocumented as of this encounter Plan of Treatment DateTypeDepartmentCare Team (Latest Contact Info)Jwdkqaouvst95/23/2025 9:30 AM ESTOffice Visit [facility] [place] IRIZARRY [address] [facility] [place] [address] Darlyn Atkins PA [address] [facility] [address] [place], [facility]11 documented as of this encounter Visit Diagnoses Not on filedocumented in this encounter Care Teams Team MemberRelationshipSpecialtyStart DateEnd Date Miguel Oliveros MD [address] [place] [address], [address] [place] [address] PCP - GeneralFamily Medicine03/21/24documented as of this encounter
--- OUTSIDE RECORDS SUMMARY | 2025-07-14 10:07 | XMS_ITS | Clinical Summary ---
Author Organization [facility] Address [address] [place] [address] Phone Care Team Providers Care Chief Deputy Coroner Name Role Phone Unavailable Primary Care Provider Unavailabl e Social History Tobacco UseTypesPacks/DayYears UsedDateSmoking Tobacco: Never Assessed CommentsUnknownSex and Gender InformationValueDate RecordedSex Assigned at Not on fileLegal DpgIqrmud29/25/2022 7:30 PM ESTGender IdentityNot on fileSexual OrientationNot on file Plan of Treatment Not on file
--- OUTSIDE RECORDS SUMMARY | 2025-07-14 10:07 | XMS_ITS | Clinical Summary ---
Author Organization [facility] Address [id number] [address] [place] [address] Care Team Providers Care Track Service Worker Name Role Phone Miguel Oliveros MD Primary Care Provider [phone] Allergies No known active allergies Medications MedicationSigDispense QuantityRefillsLast FilledStart DateEnd DateStatus acetaminophen (TYLENOL EXTRA STRENGTH) 500 mg tablet Take 2 tablets (1,000 mg total) by mouth every 6 (six) hours as needed for pain. 30 tablet 09/29/2023ctive Additional Information Patient not taking.Reported on 11/15/2024 ibuprofen (MOTRIN) 800 mg tablet Take 1 tablet (800 mg total) by mouth 3 (three) times a day. 21 tablet 09/29/2023ctive Additional Information Patient not taking.Reported on 11/15/2024 semaglutide, weight loss, (WEGOVY) 0.25 mg/0.5 mL pen injector Indications:Class 1 obesity due to excess calories without serious comorbidity with body mass index (BMI) of 32.0 to 32.9 in adultInject 0.5 mL (0.25 mg total) under the skin every 7 days. 2 mL 02/03/2024ctive Additional Information Patient not taking.Reported on 11/15/2024 Active Problems No known active problems Immunizations ImmunizationAdministration DatesNext GdrSZV3604/24/1986,01/13/1986Hep B, Adolescent or Fuxmwmpdj08/19/2000,01/05/1998,09/14/1997Influenza Whole06/08/2009 Influenza, Injectable, Rlcoepiyxajh57/30/6576HKV0509/14/1997,03/30/1990OPV 04/13/1990,01/13/1986,1985Td, Omtevxdcfav90/22/1998,04/13/1990Tdap 07/14/2021,10/09/2014 Family History Medical HistoryRelationNameCommentsNo Known ProblemsFatherNo Known Problems MotherAsthmaSonRelationNameStatusCommentsFatherAliveMotherAliveSonAlive Social History Tobacco UseTypesPacks/DayYears UsedDateSmoking Tobacco: NeverSmokeless Tobacco: Never Tobacco Cessation:Counseling Given: No Alcohol UseStandard Drinks/WeekCommentsNot Currently0 (1 standard drink = 0.6 oz pure alcohol)SOCIALPHQ-2AnswerDate RecordedTotal Mslfe9861ChildcareAnswer Date NfmjbcaiTwefolfgaHzjikdu04/12/2019EmploymentAnswerDate RecordedEmployment Xvrxsyd3201/26/2019Hunger ScreeningAnswerDate RecordedWithin the past 12 months we worried whether our food would run out before we got money to buy more.Never True11/15/2024Within the past 12 months the food we bought just didn't last and we didn't have money to get more.Never True11/15/2024CommentsNoSex and Gender InformationValueDate RecordedSex Assigned at BirthNot on fileLegal Sex Qazfep3003/21/2015 5:13 PM EDTGender IdentityNot on fileSexual OrientationNot on file Last Filed Vital Signs Vital SignReadingTime TakenCommentsBlood Nppzfmnh887/31290 6:05 PM EDT Cdqfi98415/01/2025 6:05 PM UBPAqnziayicjk94.6 ??C (99.7 ??F)11/15/2024 6:05 PM EDTRespiratory Ityd963411/15/2024 6:05 PM EDTOxygen Cjombxnscz44%11/15/2024 6:05 PM EDTInhaled Oxygen Concentration--Kzpdqf78.7 kg (200 lb)11/15/2024 6:05 PM EDT Ercdez347.1 cm (5' 5 )11/15/2024 6:05 PM EDTBody Mass Index33.28011/15/2024 6:05 PM EDT Plan of Treatment Health MaintenanceDue DateLast DoneCommentsDepression Kdqrziqlf91/26/1998Adult BMI Follow Up Plan2003Pap Smear504/OVID-19 Vaccine ( season)/, 12/30/2020Influenza Bpyqpeh4004/17/2025 07/16/2014, 06/08/2009dult BMI Fmcsdcuxl13Tobacco Screening DTaP,Tdap and Td Vaccines (6 - Td or Tdap)07/14/2031 07/14/2021, 10/09/2014, 01/05/1998, Additional history exists Medical Devices ImplantedTypeAreaManufacturerDevice IdentifierShelf Expiration DateModel / Serial / LotMesh 3.3x2.3mm Plstr Clgn Symbotex 9cm Comp Mfl Babsr Flm - Sna - [id number] Implanted:Qty: 1 on 07/14/2023 by Haider Wells [facility]: AbdomenMEDTRONIC [facility]11/14/2026SYM9 / NA / [id number] Insurance Care Teams Team MemberRelationshipSpecialtyStart DateEnd Date Miguel Oliveros MD [address] [place] [address], [address] [place] [address] PCP - GeneralPediatrics05/11/17
--- OUTSIDE RECORDS SUMMARY | 2025-07-14 10:07 | XMS_ITS | Encounter Summary ---
Author Organization [facility] Address [address] [place] [address] Care Team Providers Care Equipment Maintenance Superintendent Name Role Phone Miguel Oliveros MD Primary Care Provider [phone] Encounter Details DateTypeDepartmentCare Team (Latest Contact Info)Vvxpqayigip34/17/2025Travel Social History Tobacco UseTypesPacks/DayYears UsedDateSmoking Tobacco: NeverSmokeless Tobacco: NeverAlcohol UseStandard Drinks/WeekCommentsYes1 (1 standard drink = 0.6 oz pure alcohol)CommentsNoSex and Gender InformationValueDate RecordedSex Assigned at BirthNot on fileLegal BnrYjgewe78/15/2023 7:23 PM EDTGender Identity Not on fileSexual OrientationNot on filedocumented as of this encounter Plan of Treatment DateTypeDepartmentCare Team (Latest Contact Info)Auzjnvaweau72/23/2025 9:30 AM ESTOffice Visit [facility] [place] IRIZARRY [address] [place] [address] Darlyn Atkins PA [address] [facility] [address] [place], [facility]11 documented as of this encounter Visit Diagnoses Not on filedocumented in this encounter Care Teams Team MemberRelationshipSpecialtyStart DateEnd Date Miguel Oliveros MD [address] [place] [address], [address] [place], [place] [id number] PCP - GeneralFamily Medicine03/21/24documented as of this encounter
--- OUTSIDE RECORDS SUMMARY | 2025-07-14 10:07 | XMS_ITS | Clinical Summary ---
Author Organization [facility] Address [address] [place] [address] Care Team Providers Care Bulb Grower Name Role Phone Miguel Oliveros MD Primary Care Provider [phone] Allergies No known active allergies Medications MedicationSigDispense QuantityRefillsLast FilledStart DateEnd DateStatus ferrous sulfate 325 (65 Fe) MG tablet Take 325 mg by mouth in the morning. Take with meals.Active acetaminophen (Tylenol) 500 MG tablet Take 1,000 mg by mouth every 6 (six) hours if gngsru3709/29/2023ctive ibuprofen 800 MG tablet Take 800 mg by mouth in the morning and 800 mg at noon and 800 mg in the evening.09/29/2023ctive Encounters DateTypeDepartmentCare PdebRvvsaatkwgs10/18/2025 8:40 AM ESTConsult LISETTE IRIZARRY [address] [facility] [place] [address] Luis Olvera DO Menorrhagia with regular cycle; Pelvic pain; Dysmenorrhea; Dyspareunia in female; Pre-op ncmwrolrram75/18/2025amboo flowsheet NOMDeyanira IRIZARRY [address] [facility] [place] [address] Luis Olvera DO 07/03/20251700Cghvip59/29/2025Results Follow-Up LISETTE IRIZARRY [address] [place] [address] Radha Mcmahon CNM THINPREP IMAGING PAP AND HPV DNA REFLEX HPV 16, 4:00 PM EDTOffice Visit LISETTE SINHALATESHAN [address] [facility] [place] [phone] Radha Mcmahon CNM Normal gynecologic examination; Screening for cervical pxyeel5706/06/2025amb flowsheet NOMDeyanira Gonzalez [facility] [address] [facility] [place] [address] Radha Mcmahon CNM 06/05/20251794Koutip87/28/2025 10:40 AM EDTOffice Visit LISETTE IRIZARRY [address] [place] [address] [place] [address] Luis Olvera DO Encounter to discuss procedure; Menorrhagia with irregular cycle04/13/2025[facility] NOMDeyanira IRIZARRY [address] [place] [address] [place] [address] Luis Olvera DO from Last 3 Months Family History RelationNameStatusCommentsFatherAliveMotherAlive Social History Tobacco UseTypesPacks/DayYears UsedDateSmoking Tobacco: NeverSmokeless Tobacco: Never Tobacco Cessation:Counseling Given: Not Answered Alcohol UseStandard Drinks/WeekCommentsYes1 (1 standard drink = 0.6 oz pure alcohol)CommentsNoSex and Gender InformationValueDate RecordedSex Assigned at BirthNot on fileLegal LixJoomjv86/15/2023 7:23 PM EDTGender Identity Not on fileSexual OrientationNot on file Last Filed Vital Signs Vital SignReadingTime TakenCommentsBlood Mzkzjvns024/7807/04/2025 9:07 AM EST Pulse--Temperature--Respiratory Rate--Oxygen Saturation--Inhaled Oxygen Concentration--Jwjcqn38.8 kg (165 lb)07/04/2025 9:07 AM YQVGwtjal958.6 cm (5' 6 )07/04/2025 9:07 AM ESTBody Mass Index26.6307/04/2025 9:07 AM EST Plan of Treatment DateTypeDepartmentCare Team (Latest Contact Info)Kwddtmeiakv73/23/2025 9:30 AM ESTOffice Visit LISETTE Garcia [place] [address] Darlyn Atkins PA [address] [place] [address] [place] [address] Procedures Procedure NamePriorityDate/TimeAssociated DiagnosisCommentsTHINPREP IMAGING PAP AND HPV DNA REFLEX HPV 16,86Ylgdzqh01/21/2025 5:00 PM EDT Screening for cervical cancer from Last 3 Months Results * THINPREP IMAGING PAP AND HPV DNA REFLEX HPV 16,18 (06/06/2025 5:00 PM EDT) ComponentValueRef RangeTest MethodAnalysis TimePerformed AtPathologist SignatureCLINICAL INFORMATIONQUESTComment:None givenLMPQUESTComment:NONE GIVEN PREV. PAPQUESTComment:NONE GIVENPREV. BXQUESTComment:NONE GIVENSOURCEQUEST Comment:None givenSTATEMENT OF ADEQUACYQUESTComment: Satisfactory for evaluation. Endocervical/transformation zone component present. INTERPRETATION/RESULTQUESTComment: Cytology Results: Negative for intraepithelial lesion or malignancy. COMMENTQUESTComment: This Pap test has been evaluated with the ThinPrep(R) Imaging System. CYTOTECHNOLOGISTQUESTComment: NNO, CT(ASCP) CT screening location: [facility] [place] [address]. CLIA: [id number] REVIEW CYTOTECHNOLOGISTQUESTComment: PCJ, SCT(ASCP) CT screening location: [facility] [place] [address]. CLIA: [id number] (ALWAYS MESSAGE)QUESTComment: EXPLANATORY NOTE: The Pap is a screening test for cervical cancer. It is not a diagnostic test and is subject to false negative and false positive results. It is most reliable when a satisfactory sample, regularly obtained, is submitted with relevant clinical findings and history, and when the Pap result is evaluated along with historic and current clinical information. HPV DNA, HIGH RISK, CERVICALNot DetectedNOT DETECTEDQUESTComment: Not Detected High Risk HPV types (16,18,31,33,35,39,45,51,52, 56,58,59,66,68) were not detected. Other HPV types which cause anogenital lesions may be present. The significance of the other types of HPV in malignant processes has not been established. Methodology: Real Time PCR Specimen (Source)Anatomical Location / LateralityCollection Method / Volume Collection TimeReceived TimeSwabCervical swab / Vsaydzh1606/06/2025 5:00 PM EDT 06/08/2025 2:54 AM EDT Narrative Resulting Agency Comment Performing Organization Information ?Site ID: AMD ?Name: [facility] ?Address: [address] [place] [address] [place] ?Director: Kobe Lance M.D.,PhD ?Site ID: [id number] ?Name: [facility] ?Address: [address] [place] [id number] ?Director: Robbie Mehta MD Authorizing ProviderResult TypeResult StatusValerie Erin Mcmahon CNMLAB CYTOLOGY ORDERABLESFinal ResultPerforming OrganizationAddressCity/State/ZIP CodePhone Number [facility] from Last 3 Months Insurance Care Teams Team MemberRelationshipSpecialtyStart DateEnd Date Miguel Oliveros MD [address] [place] [address], [address] [place], [place] [id number] PCP - GeneralFamily Medicine03/21/24
[2025-07-14 10:35] LABS: Hematocrit 38.9 % (36.0-48.0); Hemoglobin 12.2 g/dL (12.0-16.0); Immature Granulocytes Abs Auto 0.02 10^3/uL (0.00-0.03); Immature Granulocytes Pct Auto 0.3 % (0.0-0.5); Lymphocytes Absolute Auto 1.4 10^3/uL (1.2-3.8); Mean Corpuscular HGB Conc 31.4 g/dL (29.9-35.2); Mean Corpuscular Hemoglobin 26.1 pg (26.7-34.0); Mean Corpuscular Volume 83.3 fL (81.0-99.0); Platelet Count 282 10^3/uL (150-450); Red Blood Count 4.67 10^6/uL (4.20-5.40); White Blood Count 7.8 10^3/uL (4.0-11.0)
[2025-07-14 10:45] LABS: INR 1.07; Partial Thromboplastin Time 26.8 sec (22.3-36.2); Prothrombin Time 11.3 sec (9.0-11.6)
[2025-07-14 10:48] LABS: Alanine Aminotransferase 18 U/L (14-59); Albumin Globulin Ratio 0.9; Albumin Level 3.5 g/dL (3.4-5.0); Alkaline Phosphatase 62 U/L (46-116); Anion Gap 11.3; Aspartate Amino Transferase 11 U/L (15-37); Blood Urea Nitrogen 14.0 mg/dL (7.0-18.0); Calcium 9.5 mg/dL (8.5-10.1); Carbon Dioxide 28.2 mmol/L (21.0-32.0); Chloride 105 mmol/L (98-107); Estimated GFR (African America >60 (>=60 mL/min/1.73m^2); Estimated GFR (Non-African Ame >60 (>=60 mL/min/1.73m^2); Globulin 3.7 g/dL; Glucose 105 mg/dL (74-106); Potassium 4.5 mmol/L (3.5-5.1); Sodium 140 mmol/L (136-145); Total Protein 7.2 g/dL (6.4-8.2)
== END 2025-07-14 10:03 | disposition home or self-care (01) ==
LOC: PST 10:03
PROVIDERS: Family Provider Internal Medicine; PCP Internal Medicine; Visit Provider Obstetrics & Gynecology
DX: Z01.812 Encounter for preprocedural laboratory examination (principal); N92.0 Excessive and frequent menstruation with regular cycle; R10.30 Lower abdominal pain, unspecified; N94.6 Dysmenorrhea, unspecified; N94.10 Unspecified dyspareunia
CPT/HCPCS: 36415; 80048; 80076; 85025; 85610; 85730

== ENCOUNTER 2025-07-31 16:46 | Outpatient (OUT) | payer BC, SELFPAY | END 2025-07-31 16:47 | disposition home or self-care (01) | LOC: LAB 16:51 | PROVIDERS: Family Provider Internal Medicine; PCP Internal Medicine; Visit Provider Obstetrics & Gynecology | DX: Z01.812 Encounter for preprocedural laboratory examination (principal); N92.0 Excessive and frequent menstruation with regular cycle; R10.20 Pelvic and perineal pain unspecified side; N94.6 Dysmenorrhea, unspecified; N94.10 Unspecified dyspareunia | CPT/HCPCS: 36415; 86850; 86900; 86901 ==

== ENCOUNTER 2025-08-02 11:33 | Inpatient (IN) | payer BC, SELFPAY ==
[2025-07-14 10:29] VITALS: BP 142/84; PULSE 76; TEMP 36.3; O2SAT 100; BMI 28.4
[2025-08-02] VITALS (15 sets, daily range): BP systolic 119–152; BP diastolic 78–109; PULSE 84–106; TEMP 36.4–37.8; O2SAT 94–100; BMI 26.3
--- OUTSIDE RECORDS SUMMARY | 2025-08-02 06:09 | XMS_ITS | Clinical Summary ---
Author Organization [facility] Address [address] [place] [address] Phone Care Team Providers Care Rope Maker Name Role Phone Unavailable Primary Care Provider Unavailabl e Social History Tobacco UseTypesPacks/DayYears UsedDateSmoking Tobacco: Never Assessed CommentsUnknownSex and Gender InformationValueDate RecordedSex Assigned at Not on fileLegal GukCydzlc91/25/2022 7:30 PM ESTGender IdentityNot on fileSexual OrientationNot on file Plan of Treatment Not on file
--- OUTSIDE RECORDS SUMMARY | 2025-08-02 06:09 | XMS_ITS | Clinical Summary ---
Author Organization [facility] Address [address] [facility] [place] [address] Care Team Providers Care Manager Car Name Role Phone Miguel Oliveros MD Primary Care Provider Allergies No known active allergies Medications MedicationSigDispense QuantityRefillsLast FilledStart DateEnd DateStatus ferrous sulfate 325 (65 Fe) MG tablet Take 325 mg by mouth in the morning. Take with meals.Active acetaminophen (Tylenol) 500 MG tablet Take 1,000 mg by mouth every 6 (six) hours if uevdsu2309/29/2023ctive ibuprofen 800 MG tablet Take 800 mg by mouth in the morning and 800 mg at noon and 800 mg in the evening.09/29/2023ctive Encounters DateTypeDepartmentCare HwxtFydhhjcunmt31/15/2025linisync Result Encounter NOMS External Department Unsolicited Luis Olvera, DO 07/17/2025bstract NOMS Julia IRIZARRY [address] [place] [address] Luis Olvera, DO 07/14/2025linisync Result Encounter NOMS External Department Unsolicited Luis Olvera, DO 07/04/2025 8:40 AM [place] [address] Luis Olvera, DO Menorrhagia with regular cycle; Pelvic pain; Dysmenorrhea; Dyspareunia in female; Pre-op vtoictbntro67/18/2025amboo flowsheet NOMDeyanira IRIZARRY [address] [place] [address] Luis Olvera DO 07/03/20254266Ilbkcw67/29/2025Results Follow-Up LISETTE Cedenoarminda IRIZARRY [address] [place] [address] Radha Mcmahon CNM THINPREP IMAGING PAP AND HPV DNA REFLEX HPV 16, 4:00 PM EDTOffice Visit LISETTE Gonzalez EDIE [address] [place] [address] Radha Mcmahon CNM Normal gynecologic examination; Screening for cervical kntroq2106/06/2025amboo flowsheet LISETTE Gonzalez EDIE [address] [place] [address] Radha Mcmahon CNM 06/05/2025Travelfrom Last 3 Months Family History RelationNameStatusCommentsFatherAliveMotherAlive Social History Tobacco UseTypesPacks/DayYears UsedDateSmoking Tobacco: NeverSmokeless Tobacco: Never Tobacco Cessation:Counseling Given: Not Answered Alcohol UseStandard Drinks/WeekCommentsYes1 (1 standard drink = 0.6 oz pure alcohol)CommentsNoSex and Gender InformationValueDate RecordedSex Assigned at BirthNot on fileLegal CclPrmzjn38/15/2023 7:23 PM EDTGender Identity Not on fileSexual OrientationNot on file Last Filed Vital Signs Vital SignReadingTime TakenCommentsBlood Jyxfcmgz728/7807/04/2025 9:07 AM EST Pulse--Temperature--Respiratory Rate--Oxygen Saturation--Inhaled Oxygen Concentration--Cqmpcs70.8 kg (165 lb)07/04/2025 9:07 AM RIOCyyfis844.6 cm (5' 6 )07/04/2025 9:07 AM ESTBody Mass Index26.6307/04/2025 9:07 AM EST Plan of Treatment DateTypeDepartmentCare Team (Latest Contact Info)Eppwnnvovcj29/23/2025 9:30 AM ESTOffice Visit LISETTE IRIZARRY [address] [place] [address] [place] [address] Darlyn Atkins PA [address] [place] [address] [place] [address] Procedures Procedure NamePriorityDate/TimeAssociated DiagnosisCommentsALL TYPE AND SCREEN Ljkfrdl6407/31/2025 5:00 PM EST ALL BASIC METABOLIC CZLYWCcvxlex30/28/2025 10:25 AM EST HMHP LIVER YFQPTLpezbal94/28/2025 10:25 AM EST CCF QNTXPlojrib81/28/2025 10:25 AM EST SRMCOH PROTHROMBIN TIME INR W/O VBEVQjkcewv77/28/2025 10:25 AM EST ALL CBC WITH AUTO YTFQFdepyno95/28/2025 10:25 AM EST THINPREP IMAGING PAP AND HPV DNA REFLEX HPV 16,83Nblkpvf46/21/2025 5:00 PM EDT Screening for cervical cancer from Last 3 Months Results * ALL TYPE AND SCREEN (07/31/2025 5:00 PM EST)ComponentValueRef RangeTest Method Analysis TimePerformed AtPathologist SignatureBLOOD TYPEO NegativeTBHANTIBODY SCREENNEGATIVETBHSpecimen (Source)Anatomical Location / LateralityCollection Method / VolumeCollection TimeReceived Time07/31/2025 5:00 PM EST07/31/2025 5:03 PM EST Narrative CLINISYNC - 07/31/2025 6:03 PM EST [facility] , ?? Authorizing ProviderResult TypeResult StatusCorey May DOCLINISYNCFinal Result Performing OrganizationAddressCity/State/ZIP CodePhone Number CLINISYNC [facility] * SRMCOH PROTHROMBIN TIME INR W/O COUM (07/14/2025 10:25 AM EST)ComponentValue Ref RangeTest MethodAnalysis TimePerformed AtPathologist SignaturePROTHROMBIN TIME11.39.0 - 11.6 secTBHTBH INR1.07TBHComment: DESIRED INR: 2.0-3.0 CONDITIONS NOT LISTED BELOW 2.5-3.5 FOR PROSTHETIC HEART VALVE REPLACEMENT 2.5-3.5 RECURRENT THROMBOSIS Specimen (Source)Anatomical Location / LateralityCollection Method / Volume Collection TimeReceived Time07/14/2025 10:25 AM EST07/14/2025 10:26 AM EST Narrative CLINISYNC - 07/14/2025 10:45 AM EST Authorizing ProviderResult TypeResult StatusCorey May DOCLINISYNCFinal Result Performing OrganizationAddressCity/State/ZIP CodePhone Number [facility] * (ABNORMAL) [facility] LIVER PANEL (07/14/2025 10:25 AM EST)ComponentValueRef Range Test MethodAnalysis TimePerformed AtPathologist SignatureBILIRUBIN TOTAL0.60.2 - 1.0 mg/dLTBHBILIRUBIN DIRECT0.10.0 - 0.2 mg/dLTBHASPARTATE AMINO TRANSFERASE 11(L)15 - 37 U/LTBHALANINE DIJEECSLTXPWMGXK1470 - 59 U/LTBHALKALINE UIGFKSTFLLE0025 - 116 U/LTBHTOTAL PROTEIN7.26.4 - 8.2 g/dLTBHALBUMIN LEVEL3.5 3.4 - 5.0 g/dLTBHGLOBULIN3.7g/dLTBHALBUMIN GLOBULIN RATIO0.9TBHSpecimen (Source)Anatomical Location / LateralityCollection Method / VolumeCollection TimeReceived Time07/14/2025 10:25 AM EST07/14/2025 10:26 AM EST Narrative CLINISYNC - 07/14/2025 10:56 AM EST Authorizing ProviderResult TypeResult StatusCorey May DOCLINISYNCFinal Result Performing OrganizationAddressty/State/ZIP CodePhone Number [facility] * [facility] APTT (07/14/2025 10:25 AM EST)ComponentValueRef RangeTest MethodAnalysis TimePerformed AtPathologist SignaturePARTIAL THROMBOPLASTIN TIME26.822.3 - 36.2 secTBHSpecimen (Source)Anatomical Location / LateralityCollection Method / VolumeCollection TimeReceived Time07/14/2025 10:25 AM EST07/14/2025 10:26 AM EST Narrative CLINISYNC - 07/14/2025 10:45 AM EST Authorizing ProviderResult TypeResult StatusCorey May DOCLINISYNCFinal Result Performing OrganizationAddressCity/State/ZIP CodePhone Number [facility] * (ABNORMAL) ALL CBC WITH AUTO DIFF (07/14/2025 10:25 AM EST)ComponentValueRef RangeTest MethodAnalysis TimePerformed AtPathologist SignatureTBH WBC7.84.0 - 11.0 10 3/uLTBHTBH RBC4.674.20 - 5.40 10 6/uLTBHTBH HGB12.212.0 - 16.0 g/dLTBH TBH HCT38.936.0 - 48.0 %TBHTBH MCV83.381.0 - 99.0 fLTBHTBH MCH26.1(L)26.7 - 34.0 pgTBHTBH MCHC31.429.9 - 35.2 g/dLTBHTBH RDW13.811.0 - 15.0 %TBHTBH RVE283 150 - 450 10 3/uLTBHTBH MPV11.39.5 - 13.5 fLTBHNEUTROPHILS PERCENT AUTO65.3 43.0 - 75.0 %TBHLYMPHOCYTES PERCENT AUTO18.3(L)20.5 - 60.0 %TBHMONOCYTES PERCENT AUTO6.91.7 - 12.0 %TBHTBH EO %7.9(H)0.9 - 7.0 %TBHBASOPHILS PERCENT AUTO1.30.2 - 2.0 %TBHIMMATURE GRANULOCYTES PCT AUTO0.30.0 - 0.5 %TBH NEUTROPHILS ABSOLUTE AUTO5.11.4 - 6.5 10 3/uLTBHLYMPHOCYTES ABSOLUTE AUTO1.4 1.2 - 3.8 10 3/uLTBHMONOCYTES ABSOLUTE AUTO0.50.3 - 0.8 10 3/uLTBHTBH EO #0.6 0.0 - 0.7 10 3/uLTBHBASOPHILS ABSOLUTE AUTO0.10.0 - 0.1 10 3/uLTBHIMMATURE GRANULOCYTES ABS AUTO0.020.00 - 0.03 10 3/uLTBHSpecimen (Source)Anatomical Location / LateralityCollection Method / VolumeCollection TimeReceived Time 07/14/2025 10:25 AM EST07/14/2025 10:26 AM EST Narrative CLINISYNC - 07/14/2025 10:36 AM EST Authorizing ProviderResult TypeResult StatusCorey May DOCLINISYNCFinal Result Performing OrganizationAddressty/State/ZIP CodePhone Number [facility] * ALL BASIC METABOLIC PANEL (07/14/2025 10:25 AM EST)ComponentValueRef RangeTest MethodAnalysis TimePerformed AtPathologist PjuopgdvbTMKHHJ370921 - 145 mmol/L TBHPOTASSIUM4.53.5 - 5.1 mmol/FIGNBUQCKHFC16903 - 107 mmol/LTBHCARBON DIOXIDE 28.221.0 - 32.0 mmol/LTBHANION GAP11.2IBPFATEPVW73329 - 106 mg/dLTBHBLOOD UREA PZYPYVUO48.07.0 - 18.0 mg/dLTBHCREATININE0.590.55 - 1.02 mg/dLTBHTBH EGFR-AF AUSTRALIAN>60>=60 mL/min/1.73m 2TBHTBH EGFR-NON AF AUSTRALIAN>60>=60 mL/min/1.73m 2TBHBUN CREATININE RATIO23.6KEPBHOLIQV9.58.5 - 10.1 mg/dLTBHSpecimen (Source) Anatomical Location / LateralityCollection Method / VolumeCollection Time Received Time07/14/2025 10:25 AM EST07/14/2025 10:26 AM EST Narrative DANETTE - 07/14/2025 10:56 AM EST Authorizing ProviderResult TypeResult StatusCorey May DOCLINISYNCFinal Result Performing OrganizationAddressty/State/ZIP CodePhone Number [facility] * THINPREP IMAGING PAP AND HPV DNA [...] System. CYTOTECHNOLOGISTQUESTComment: NNO, CT(ASCP) CT screening location: [facility] [place] [address]. CLIA: [id number] REVIEW CYTOTECHNOLOGISTQUESTComment: PCJ, SCT(ASCP) CT screening location: [facility] [place] [address]. CLIA: [id number] (ALWAYS MESSAGE)QUESTComment: EXPLANATORY NOTE: The Pap is [...] / Volume Collection TimeReceived TimeSwabCervical swab / Nfscczd9306/06/2025 5:00 PM EDT 06/08/2025 2:54 AM EDT Narrative Resulting Agency Comment Performing Organization Information ?Site ID: AMD ?Name: [facility] ?Address: [address] [place] [address] [place] ?Director: Kobe Lance M.D.,PhD ?Site ID: [id number] ?Name: [facility] ?Address: [address] [place] [address], [address] [place] [phone] ?Director: Robbie Mehta MD Authorizing ProviderResult TypeResult StatusValerijunie Mcmahon CNMLAB CYTOLOGY ORDERABLESFinal ResultPerforming OrganizationAddressCity/State/ZIP CodePhone Number [facility] from Last 3 Months Insurance Care Teams Team MemberRelationshipSpecialtyStart DateEnd Date Miguel Oliveros MD [address] [place] [address], [address] [place] [address] PCP - GeneralFamily Medicine03/21/24
--- OUTSIDE RECORDS SUMMARY | 2025-08-02 06:09 | XMS_ITS | Clinical Summary ---
Author Organization [facility] Address [facility] [place] [id number] [address] [place] [address] Care Team Providers Care Human Resources Clerk Name Role Phone Miguel Oliveros MD Primary Care Provider [phone] Allergies No known active allergies Medications MedicationSigDispense [...] No known active problems Immunizations ImmunizationAdministration DatesNext UwcQIX9104/24/1986,01/13/1986Hep B, Adolescent or Zracmthyx10/19/2000,01/05/1998,09/14/1997Influenza Whole06/08/2009 Influenza, Injectable, Seyfyspdjhnw21/30/3856UFN9409/14/1997,03/30/1990OPV 04/13/1990,01/13/1986,1985Td, Phlztdowhnn47/22/1998,04/13/1990Tdap 07/14/2021,10/09/2014 Family History Medical HistoryRelationNameCommentsNo Known ProblemsFatherNo Known Problems MotherAsthmaSonRelationNameStatusCommentsFatherAliveMotherAliveSonAlive Social History Tobacco UseTypesPacks/DayYears UsedDateSmoking Tobacco: NeverSmokeless Tobacco: Never Tobacco Cessation:Counseling Given: No Alcohol UseStandard Drinks/WeekCommentsNot Currently0 (1 standard drink = 0.6 oz pure alcohol)SOCIALPHQ-2AnswerDate RecordedTotal Xjtaw2791ChildcareAnswer Date TndvrbpwHgkrcygokQoetnuv34/12/2019EmploymentAnswerDate RecordedEmployment Hktdrfl8301/26/2019Hunger ScreeningAnswerDate RecordedWithin the past 12 months we worried whether our food would run out before we got money to buy more.Never True11/15/2024Within the past 12 months the food we bought just didn't last and we didn't have money to get more.Never True11/15/2024CommentsNoSex and Gender InformationValueDate RecordedSex Assigned at BirthNot on fileLegal Sex Hsqwxj3903/21/2015 5:13 PM EDTGender IdentityNot on fileSexual OrientationNot on file Last Filed Vital Signs Vital SignReadingTime TakenCommentsBlood Mfltzsof758/94690 6:05 PM EDT Kjybc26491/01/2025 6:05 PM YNOOhxlclprccx09.6 ??C (99.7 ??F)11/15/2024 6:05 PM EDTRespiratory Fvsw938611/15/2024 6:05 PM EDTOxygen Yhgxklwkbk17%11/15/2024 6:05 PM EDTInhaled Oxygen Concentration--Wqkcow87.7 kg (200 lb)11/15/2024 6:05 PM EDT Yqnsbw842.1 cm (5' 5 )11/15/2024 6:05 PM EDTBody Mass Index33.28011/15/2024 6:05 PM EDT Plan of Treatment Health MaintenanceDue DateLast DoneCommentsDepression Babgmnopj08/26/1998Adult BMI Follow Up Plan2003Pap Smear504/OVID-19 Vaccine ( season)/, 12/30/2020Influenza Jtztdnd5204/17/2025 07/16/2014, 06/08/2009dult BMI Lzucurmfy50Tobacco Screening DTaP,Tdap and Td Vaccines (6 - Td or Tdap)07/14/2031 07/14/2021, 10/09/2014, 01/05/1998, Additional history exists Medical Devices ImplantedTypeAreaManufacturerDevice IdentifierShelf Expiration DateModel / Serial / LotMesh 3.3x2.3mm Plstr Clgn Symbotex 9cm Comp Mfl Babsr Flm - Sna - [id number] Implanted:Qty: 1 on 07/14/2023 by [facility]ider [facility]: AbdomenMEDTRONIC RUST11/14/2026SYM9 / NA / [id number] Insurance Care Teams Team MemberRelationshipSpecialtyStart DateEnd Date Miguel Oliveros MD [address] [place] [address], [address] [place] [address] PCP - GeneralPediatrics05/11/17
--- OUTSIDE RECORDS SUMMARY | 2025-08-02 06:09 | XMS_ITS | Encounter Summary ---
Author Organization [facility] Address [address] [facility] [place] [address] Care Team Providers Care Consulting Systems Engineer Name Role Phone Miguel Oliveros MD Primary Care Provider [phone] Encounter Details DateTypeDepartmentCare Team (Latest Contact Info)Ienxeonjhta94/15/2025linisync Result Encounter NOMS External Department Unsolicited Luis Olvera DO [address] [facility] [address] Anabelle Dumont, [facility] Social History Tobacco UseTypesPacks/DayYears UsedDateSmoking Tobacco: NeverSmokeless Tobacco: NeverAlcohol UseStandard Drinks/WeekCommentsYes1 (1 standard drink = 0.6 oz pure alcohol)CommentsNoSex and Gender InformationValueDate RecordedSex Assigned at BirthNot on fileLegal QkdNalwoq09/15/2023 7:23 PM EDTGender Identity Not on fileSexual OrientationNot on filedocumented as of this encounter Plan of Treatment DateTypeDeadvanced care hospital of white countyCare Team (Latest Contact Info)Qelfbhtsevn47/23/2025 9:30 AM ESTOffice Visit NOMS Julia IRIZARRY [address] [facility] [place] [address] Darlyn Atkins PA [address] [facility] [place] [address] documented as of this encounter Procedures Procedure NamePriorityDate/TimeAssociated DiagnosisCommentsALL TYPE AND SCREEN Mjtpbtn5607/31/2025 5:00 PM EST documented in this encounter Results * ALL TYPE AND SCREEN (07/31/2025 5:00 PM EST)ComponentValueRef RangeTest Method Analysis TimePerformed AtPathologist SignatureBLOOD TYPEO NegativeTBHANTIBODY SCREENNEGATIVETBHSpecimen (Source)Anatomical Location / LateralityCollection Method / VolumeCollection TimeReceived Time07/31/2025 5:00 PM EST07/31/2025 5:03 PM EST Narrative CLINISYNC - 07/31/2025 6:03 PM EST [facility] , ?? Authorizing ProviderResult TypeResult StatusCorey May DOCLINISYNCFinal Result Performing OrganizationAddressCity/State/ZIP CodePhone Number CLINISYNC TB documented in this encounter Visit Diagnoses Not on filedocumented in this encounter Care Teams Team MemberRelationshipSpecialtyStart DateEnd Date Miguel Oliveros MD [address] [place] [address], [address] [place] [address] PCP - GeneralFamily Medicine03/21/24documented as of this encounter
[2025-08-02 06:16] LABS: Hematocrit 35.4 % (36.0-48.0); Hemoglobin 11.3 g/dL (12.0-16.0); Immature Granulocytes Abs Auto 0.01 10^3/uL (0.00-0.03); Immature Granulocytes Pct Auto 0.1 % (0.0-0.5); Lymphocytes Absolute Auto 2.3 10^3/uL (1.2-3.8); Mean Corpuscular HGB Conc 31.9 g/dL (29.9-35.2); Mean Corpuscular Hemoglobin 26.4 pg (26.7-34.0); Mean Corpuscular Volume 82.7 fL (81.0-99.0); Platelet Count 362 10^3/uL (150-450); Red Blood Count 4.28 10^6/uL (4.20-5.40); White Blood Count 7.0 10^3/uL (4.0-11.0)
[2025-08-02] MEDS: SCOPOLAMINE 1 MG/3 DAYS TRANSDERM PATCH 1 PATCH TD (07:17)
[2025-08-02] MEDS: FAMOTIDINE/PF 20 MG/2 ML VIAL IV (07:18)
[2025-08-02] MEDS: CEFAZOLIN SODIUM 1 GM/50 ML D5W PREMIX IV (07:39)
[2025-08-02] MEDS: 0.9 % SODIUM CHLORIDE 1,000 ML 75 ML IV (08:38)
--- NOTE | 2025-08-02 10:03 | P.ON_ITS ---
Brief Operative Note Date of procedure: 08/02/25 Pre-op diagnosis general: aub,pelvic pain, dysmenorrhea, dyspareunia Post-op diagnosis: same as pre-op Procedure: NAME OF PROCEDURE: [ ]Total abdominal hysterectomy, bilateral salpingectomy with cystoscopy. PROCEDURE: Patient was taken back to the Operating Room where she was given general anesthesia without difficulty. She was then prepped and draped in the normal sterile fashion. A Pfannenstiel skin incision was then made 2 cm above the symphysis and pubis and carried down to underlying rectus fascia using a Bovie. The fascia was incised in the midline and extended bilaterally using Vázquez scissors. Two Roshni clamps were placed on the superior aspect of the fascia and dissected off the underlying rectus muscle. The same was performed on the inferior aspect as well. The muscle was then in the midline. The peritoneum was identified and entered bluntly. Peritoneum was then extended superiorly and inferiorly with good visualization of the bladder. An O'Cnrrkiko-N-Gqdryk retractor was placed into the patient's abdomen. The bowel was packed away with moist laparotomy sponges and the bladder blade was inserted. A Leahey tenaculum was placed on the patient's uterus and used for retraction. LigaSure apparatus was then used to come across the mesosalpingx from the fimbriated end to the uteroovarian ligament on the patient's right side which was then cauterized and transected. TThis wascarried down serially through the broad ligament and across the round ligament. The bladder flap was then created using the Metzenbaum scissors, and thebladder was easily dissected off the patient's lower uterine segment. A curved Lisa was placed across the uterine artery on the right side which was clamped, transected, and suture ligated using #0 Monocryl. This was performed on the contralateral side as well. The bladder was further dissected and a Zeppelin clamp was then placed across the uterosacral and cardinal ligaments. This was transected and suture ligated using #0 Monocryl. This was performed on the contralateral side as well. The uterus was then amputated using Krystin scissors. The patient's cuff was closed using #0 PDS in a running locked fashion and this was transfixed to the ipsilateral uterosacral and cardinal ligaments. Excellent hemostasis was assured. The patient's abdomen wascopiously irrigated using warm saline. Cystoscopy was performed. Bladder was intact. Efflux was noted from both ostia. Cystoscope was removed.After excellent hemostasis was assured, all instruments were removed from the patient's abdomen. The patient's peritoneum was closed using 3-0 Vicryl in a running fashion. The patient's fascia was closed using #0 Vicryl in a running fashion. The patient's skin was closed using 4-0 vicryl on a blayne needle. The patient tolerated the procedure well. Sponge, lap, and needle counts were correct times two. Patient taken to the Recovery Room in stable condition Anesthesia: ROSE MARY Surgeon: Luis Olvera Project Control Officer: Riya Moncada Estimated blood loss (mL): 50 Pathology: other (uterus and cervix) Condition: stable Disposition: PACU Urinary Catheter Management Urinary Catheter Management Urethral: Cath placed during this visit: no
--- NOTE | 2025-08-02 11:17 | PC.NURSE ---
1102 ADMINISTERED IV ZOFRAN PATIENT BECAME NAUSEATED WHEN THIS CUSTOM MARINE CANVAS FABRICATOR WAS GETTING READY TO TRANSFER HER TO THE MED SURG FLOOR. MONITORED PATIENT FOR 30 MORE MIN. NAUSEA HAS IMPROVED AND PATIENT EATING ICE CHIPS AND TOLERATING WELL.
--- NOTE | 2025-08-02 11:31 | PC.NURSE ---
Patient states nausea is better
[2025-08-02] MEDS: CEFAZOLIN SODIUM/DEXTROSE,ISO 2 GM/50 ML PIGGYBACK IV ×2 (13:21→20:05)
[2025-08-02] MEDS: PROMETHAZINE HCL 25 MG in 0.9 % SODIUM CHLORIDE 50 ML 204 MG IV (14:35)
--- NOTE | 2025-08-02 19:05 | PC.NURSE ---
Asked superviser if neccesary to report patients recent vitals that comic book writer took to Dr. Olvera and superviser said no.
[2025-08-03] VITALS: BP 137/86; PULSE 94; TEMP 37.1; O2SAT 96
[2025-08-03 03:42] VITALS: BP 136/92; PULSE 98; TEMP 36.9; O2SAT 96
[2025-08-03 05:19] LABS: Hematocrit 32.9 % (36.0-48.0); Hemoglobin 10.6 g/dL (12.0-16.0); Immature Granulocytes Abs Auto 0.03 10^3/uL (0.00-0.03); Immature Granulocytes Pct Auto 0.3 % (0.0-0.5); Lymphocytes Absolute Auto 1.8 10^3/uL (1.2-3.8); Mean Corpuscular HGB Conc 32.2 g/dL (29.9-35.2); Mean Corpuscular Hemoglobin 26.2 pg (26.7-34.0); Mean Corpuscular Volume 81.4 fL (81.0-99.0); Platelet Count 340 10^3/uL (150-450); Red Blood Count 4.04 10^6/uL (4.20-5.40); White Blood Count 11.5 10^3/uL (4.0-11.0)
[2025-08-03] MEDS: ENOXAPARIN SODIUM 40 MG/0.4 ML SYRINGE SUBQ (06:31)
[2025-08-03 07:55] VITALS: BP 128/86; PULSE 89; TEMP 36.7; O2SAT 94
[2025-08-03] MEDS: MAGNESIUM HYDROXIDE 2,400 MG/10 ML ORAL.SUSP 2400 MG PO (08:02)
--- NOTE | 2025-08-03 10:52 | P.GYNPN_ITS ---
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 Post-Op Subjective: patient reports feeling better, patient has no complaints, patient desires discharge, pain is well controlled and patient is tolerating oral intake Exam Constitutional Vital Signs, click to edit/add: Last Vital Signs Temp 98.0 F 08/03/25 07:55 Pulse 89 08/03/25 07:55 Resp 20 08/03/25 07:55 BP 128/86 08/03/25 07:55 Pulse Ox 94 L 08/03/25 07:55 O2 Del Method Room Air 08/03/25 07:55 Documenting provider has reviewed patient's vital signs: yes Common normals: no apparent distress Respiratory Common normals: normal respiratory effort and clear to auscultation bilaterally Cardio Common normals: regular rate and regular rhythm GI Common normals: Normal to inspection, nondistended, normoactive bowel sounds present Extremity Common normals: no calf tenderness Results Labs Labs: Short CBC 08/03/25 Range/Units 05:08 WBC 11.5 H (4.0-11.0) 10^3/uL Hgb 10.6 L (12.0-16.0) g/dL Hct 32.9 L (36.0-48.0) % Plt Count 340 (150-450) 10^3/uL 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 - A/P Postoperative Procedures: Procedures Operation Date: 08/02/25 07:30 Actual Procedure Side Surgeon p FELICITA, bilateral salpingectomy, Cysto Not Applicable Luis Olvera DO Postoperative day: 1 Postoperative status 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 Post-operative plan 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: routine post-op care, ambulate, advance diet and discharge Fall Risk Details Ragsdale fall scale risk level: Low Fall Risk Current medications: Current Medications Docusate Sodium (Docusate Sodium 100 Mg Capsule) 100 mg PO BID PRN PRN Reason: Constipation Enoxaparin Sodium (Enoxaparin Sodium 40 Mg/0.4 Ml Syringe) 40 mg SUBQ Q24H [facility] Last Admin: 08/03/25 06:31 Dose: 40 mg Hydromorphone HCl (Hydromorphone Hcl 0.5 Mg/0.5 Ml Syringe) 0.5 mg IV Q3H PRN PRN Reason: Pain Scale 7-10 Lactated Ringer's (Lactated Ringers) 1,000 mls @ 125 mls/hr IV .Q8H [facility] Last Admin: 08/03/25 05:28 Dose: Not Given Promethazine HCl 25 mg/ Sodium (Chloride) 51 mls @ 204 mls/hr IV Q6H PRN PRN Reason: Nausea And Vomiting Last Infusion: 08/02/25 14:49 Dose: Infused Ibuprofen (Ibuprofen 400 Mg Tablet) 800 mg PO Q6H PRN PRN Reason: Pain Ketorolac Tromethamine (Ketorolac Tromethamine 30 Mg/Ml Vial) 30 mg IVP Q6H PRN PRN Reason: Pain Ondansetron HCl (Ondansetron Pf 4 Mg/2 Ml Vial) 4 mg IV Q6H PRN PRN Reason: Nausea Oxycodone/Acetaminophen (Oxycodone Hcl/Acetaminophen 5mg/325mg) 2 tab PO Q6H PRN PRN Reason: Pain Simethicone (Simethicone 80 Mg Tab.Chew) 80 mg PO PCHS PRN PRN Reason: Abdominal Distention Temazepam (Temazepam 15 Mg Capsule) 30 mg PO QHS PRN PRN Reason: Sleep Time Spent With Patient Time: Total time spent is greater than 50% in coordination of care (as documented) at patient's floor/unit and/or counseling patient: Time with patient: less than 15 minutes
--- NOTE | 2025-08-03 13:15 | DS_ITS ---
DISCHARGE DATE: ??08/03/2025 ? PRIMARY DIAGNOSES: 1.? Abnormal uterine bleeding. 2.? Pelvic pain. 3.? Dysmenorrhea. 4.? Dyspareunia ? PROCEDURE:? Total abdominal hysterectomy and bilateral salpingectomy with cystoscopy. ? HOSPITAL COURSE:? As expected.? Please see chart for full details.? ? LABORATORY DATA:? Please see chart. ? COMPLICATIONS:? None. ? DISCHARGE CONDITION:? Stable. ? CONSULTATION:? Anesthesia. ? DISCHARGE INSTRUCTIONS: 1.? Diet:? Regular. 2.? Medications: a.? Percocet 5/325 one to two p.o. every 4-6 hours p.r.n. pain. b.? Motrin 800 one p.o. every 8 hours p.r.n. pain. 3.? Followup in one week. Restrictions:? Pelvic rest for 6 weeks.? No heavy lifting.? May drive when pain free and no longer on narcotics MTDD
--- NOTE | 2025-08-03 13:20 | PC.NURSE ---
dc'd iv per order, pt dressed per self. instructions given to pt, verbalized understanding. taken to exit via wheelchair with belongings. discharged to private vehicle.
== END 2025-08-03 13:15 | disposition home or self-care (01) | DRG 743 ==
LOC: MS 08-03 10:03 → SURGOUT 08-07 16:16 → MS 08-07 16:16
PROVIDERS: Admitting Provider Obstetrics & Gynecology; Family Provider Internal Medicine; PCP Internal Medicine; Visit Provider Obstetrics & Gynecology
PROC: 0UT90ZZ Resection of Uterus, Open Approach (ICD-10-PCS; principal; 2025-08-02 07:30)
DX: N94.10 Unspecified dyspareunia (principal); R10.20 Pelvic and perineal pain unspecified side; N94.6 Dysmenorrhea, unspecified; N92.0 Excessive and frequent menstruation with regular cycle; N93.9 Abnormal uterine and vaginal bleeding, unspecified
CPT/HCPCS: 36415; 64488; 84702; 85025; 94667; J0131; J0665; J0690; J1100; J1650; J1885; J2003; J2250; J2371; J2405; J2550; J2704; J3010; J3490